=== PATIENT | male | born 1960 | race African-American/Black ===

== ENCOUNTER 2025-06-24 08:42 | Outpatient (CLI) | payer OTHER ==
[2025-06-24 09:27] LABS: #Basophils 0.04 10x3/uL (0.0-0.2); #Eosinophils 0.21 10x3/uL (0.0-0.7); #Monocytes 0.81 10x3/uL (0.11-0.59); #Neutrophils 2.33 10x3/uL (1.40-6.50); %Basophils 0.6 % (0.0-1.0); %Eosinophils 3.2 % (0.0-10.0); %Lymphocytes 48.2 % (21.0-51.0); %Monocytes 12.3 % (0.0-10.0); %Neutrophils 35.5 % (42.0-75.0); Hematocrit 44.9 % (42.0-52.0); Hemoglobin 14.8 g/dL (14.0-18.0); Mean Corpuscular Hemoglobin 27.8 pg (27.0-31.0); Mean Corpuscular Volume 84.2 fL (78.0-98.0); Platelet Count 182 10x3/uL (130-400); Red Blood Cell (RBC) Count 5.33 mill/uL (4.70-6.10); White Blood Cell (WBC) Count 6.56 10x3/uL (4.8-10.8)
[2025-06-24 09:31] LABS: INR-International Normal Ratio 1.2; Prothrombin Time 14.9 sec (12.0-14.7)
[2025-06-24 09:40] LABS: Anion Gap 14 mmol/L (10-20); BUN (Urea Nitrogen) 10 mg/dL (8.4-25.7); Calc. Creatinine Clearance 0 mL/min (70-130); Calcium 9.4 mg/dL (7.8-10.44); Carbon Dioxide 25 mmol/L (23-31); Chloride 107 mmol/L (98-107); Glucose 121 mg/dL (80-115); Potassium 4.0 mmol/L (3.5-5.1); Sodium 142 mmol/L (136-145)
== END 2025-06-24 08:43 | disposition home or self-care (01) ==
LOC: LABBT 08:42
PROVIDERS: ATTEND Orthopaedic Surgery
DX: Z01.812 Encounter for preprocedural laboratory examination (principal); M17.12 Unilateral primary osteoarthritis, left knee
CPT/HCPCS: 80048; 85025; 85610; 87081

== ENCOUNTER 2025-07-01 05:43 | Inpatient (IN) | payer OTHER ==
[2025-06-24 09:05] VITALS: BMI 39.3
[2025-07-01] MEDS ORDERED: Tranexamic Acid 1,000 MG/10 ML VIAL ONE (06:18)
[2025-07-01] MEDS ORDERED: VANCOMYCIN 2 GRAM/400 ML BAG ONE (06:18)
[2025-07-01] MEDS ORDERED: Ropivacaine 0.5% HCl/PF (150 MG/30 ML VIAL) ONE (06:45)
[2025-07-01] MEDS ORDERED: CEFAZOLIN 2 GM VIAL ONE (06:52)
[2025-07-01] MEDS ORDERED: PROPOFOL 40 ML ONE (07:14)
[2025-07-01] MEDS ORDERED: Ondansetron PF 4 MG/2 ML Vial IVP PRN ×2 (07:30→09:19)
[2025-07-01] MEDS ORDERED: Ropivacaine 0.2% 550 ML 550 ML NERVE BLCK SCH (07:30)
[2025-07-01] MEDS ORDERED: HYDROcodone/Acetaminophen 10/325 mg Tablet PO PRN (07:30)
[2025-07-01] MEDS ORDERED: PHENYLEPHRINE-NS 100 MCG/ML 10 ML SYRINGE ONE (07:38)
[2025-07-01] MEDS ORDERED: CEFAZOLIN 1 GM VIAL ONE (07:44)
[2025-07-01] MEDS ORDERED: METFORMIN HCL 500 MG PO SCH (09:19)
[2025-07-01] MEDS ORDERED: Acetaminophen 325 MG TAB PO PRN (09:19)
[2025-07-01] MEDS ORDERED: diphenhydrAMINE 25 MG CAP PO PRN (09:19)
[2025-07-01] MEDS ORDERED: fentaNYL PF 100 MCG/2 ML SYRINGE ONE ×2 (09:54→11:35)
[2025-07-01] MEDS: HYDROcodone/Acetaminophen 10/325 mg Tablet PO PRN (15:33)
[2025-07-01] MEDS: Ketorolac Tromethamine 30 MG (1 mL) VIAL IVP SCH (15:40)
[2025-07-01] MEDS: Senokot S 8.6-50 MG TAB PO SCH (15:40)
[2025-07-01] MEDS: Multivitamin W/ Minerals 1 TAB PO SCH (15:40)
[2025-07-01] MEDS: Ferrous Gluconate 324 MG TAB PO SCH (15:41)
[2025-07-01] MEDS: Metoprolol Succinate XL 25 MG ER.TAB PO SCH (19:40)
[2025-07-01] MEDS: Apixaban 5 MG TAB PO SCH (19:40)
[2025-07-01] MEDS: Cholecalciferol 1,000 UNITS (25 MCG) TAB PO SCH (19:40)
[2025-07-01] MEDS ORDERED: Non-Formulary Item 1 EACH (Cholecalciferol (Vitamin D3) [Vitamin D3] 2,000 UNIT Capsule) PO SCH (21:00)
[2025-07-01] MEDS ORDERED: Simvastatin 10 MG TAB PO SCH (21:00)
[2025-07-01] MEDS: Non-Formulary Item 1 EACH (Multivitamin [Multivitamins] 1 CAP Capsule) PO SCH (21:38)
[2025-07-02 07:10] LABS: Hematocrit 40.9 % (42.0-52.0); Hemoglobin 12.8 g/dL (14.0-18.0); Mean Corpuscular Hemoglobin 27.2 pg (27.0-31.0); Mean Corpuscular Volume 86.8 fL (78.0-98.0); Platelet Count 176 10x3/uL (130-400); Red Blood Cell (RBC) Count 4.71 mill/uL (4.70-6.10); White Blood Cell (WBC) Count 10.33 10x3/uL (4.8-10.8)
[2025-07-02] MEDS: metFORMIN XR 500 MG ER.TAB PO SCH (08:33)
[2025-07-02] MEDS ORDERED: Apixaban 5 MG TAB PO SCH (09:00)
[2025-07-02] MEDS ORDERED: HYDROmorphone 0.5 MG/0.5 ML SYRINGE SLOW IVP PRN (17:03)
[2025-07-03 07:56] LABS: Hematocrit 37.2 % (42.0-52.0); Hemoglobin 11.4 g/dL (14.0-18.0); Mean Corpuscular Hemoglobin 27.2 pg (27.0-31.0); Mean Corpuscular Volume 88.8 fL (78.0-98.0); Platelet Count 153 10x3/uL (130-400); Red Blood Cell (RBC) Count 4.19 mill/uL (4.70-6.10); White Blood Cell (WBC) Count 13.21 10x3/uL (4.8-10.8)
[2025-07-03 11:26] VITALS: BP 134/77; TEMP 98.2
== END 2025-07-03 15:32 | disposition home or self-care (01) | DRG 470 ==
LOC: SDC 05:43 → SURG B 15:01 → OBSVTOIN 07-02 14:21
PROVIDERS: ADMIT Orthopaedic Surgery; ATTEND Orthopaedic Surgery
PROC: 0SRD0JA Replacement of Left Knee Joint with Synthetic Substitute, Uncemented, Open Approach (ICD-10-PCS; principal; 2025-07-01)
DX: M17.12 Unilateral primary osteoarthritis, left knee (principal); E11.40 Type 2 diabetes mellitus with diabetic neuropathy, unspecified; I48.0 Paroxysmal atrial fibrillation; E78.5 Hyperlipidemia, unspecified; Z79.899 Other long term (current) drug therapy
CPT/HCPCS: 36415; 36416; 85027; 96374; 96375; 96376; A4306; C1713; C1776; C1889; G0378; J0169; J0665; J0690; J1885; J2250; J2704; J2795; J3010; J3375

== ENCOUNTER 2025-07-03 19:38 | Inpatient (IN) | payer OTHER ==
[2025-07-03] MEDS ORDERED: CEFAZOLIN 1 GM VIAL ONE (20:44)
[2025-07-03] MEDS ORDERED: HYDROcodone/Acetaminophen 10/325 mg Tablet ONE (20:44)
[2025-07-03 23:31] VITALS: BMI 41.1
[2025-07-03] MEDS ORDERED: Ondansetron PF 4 MG/2 ML Vial IVP PRN (23:45)
[2025-07-04] MEDS: HYDROcodone/Acetaminophen 10/325 mg Tablet PO PRN ×2 (00:10→21:40)
[2025-07-04 05:32] LABS: #Basophils Less than 0.03 10x3/uL (0.0-0.2); #Eosinophils 0.21 10x3/uL (0.0-0.7); #Monocytes 1.85 10x3/uL (0.11-0.59); #Neutrophils 7.63 10x3/uL (1.40-6.50); %Basophils 0.2 % (0.0-1.0); %Eosinophils 1.8 % (0.0-10.0); %Lymphocytes 15.4 % (21.0-51.0); %Monocytes 16.1 % (0.0-10.0); %Neutrophils 66.2 % (42.0-75.0); Hematocrit 34.0 % (42.0-52.0); Hemoglobin 10.8 g/dL (14.0-18.0); Mean Corpuscular Hemoglobin 27.8 pg (27.0-31.0); Mean Corpuscular Volume 87.6 fL (78.0-98.0); Platelet Count 156 10x3/uL (130-400); Red Blood Cell (RBC) Count 3.88 mill/uL (4.70-6.10); White Blood Cell (WBC) Count 11.52 10x3/uL (4.8-10.8)
[2025-07-04] MEDS ORDERED: CEFAZOLIN IVPB SCH ×2 (08:00→16:00)
[2025-07-04] MEDS ORDERED: SODIUM CHLORIDE 0.9% IVPB SCH ×2 (08:00→16:00)
[2025-07-04] MEDS: CEFAZOLIN IVPB SCH ×2 (10:17→18:05)
[2025-07-04] MEDS: SODIUM CHLORIDE 0.9% IVPB SCH ×2 (10:17→18:05)
[2025-07-04] MEDS ORDERED: HYDROcodone/Acetaminophen 10/325 mg Tablet PO PRN (10:24)
[2025-07-04] MEDS ORDERED: Lidocaine 1% PF 5 ML VIAL ONE (11:16)
[2025-07-04] MEDS ORDERED: PROPOFOL 20 ML ONE ×2 (11:16→12:17)
[2025-07-04] MEDS ORDERED: fentaNYL PF 100 MCG/2 ML SYRINGE ONE (11:16)
[2025-07-04] MEDS ORDERED: Ondansetron PF 4 MG/2 ML Vial ONE (11:18)
[2025-07-04] MEDS ORDERED: PHENYLEPHRINE-NS 100 MCG/ML 10 ML SYRINGE ONE (12:20)
[2025-07-04] MEDS ORDERED: HYDROmorphone 2 MG/ML VIAL ONE (12:37)
[2025-07-04] MEDS ORDERED: HYDROmorphone 0.5 MG/0.5 ML SYRINGE ONE (13:43)
[2025-07-04] MEDS: Metoprolol Succinate XL 25 MG ER.TAB PO SCH (21:39)
[2025-07-04] MEDS: Cholecalciferol 1,000 UNITS (25 MCG) TAB PO SCH (21:39)
[2025-07-04] MEDS: Senokot 8.6 MG TAB PO SCH (21:39)
[2025-07-05] MEDS: metFORMIN XR 500 MG ER.TAB PO SCH (08:47)
[2025-07-05] MEDS: Multivitamin W/ Minerals 1 TAB PO SCH (08:47)
[2025-07-05 14:14] VITALS: BP 122/74; TEMP 98.9
[2025-07-05] MEDS ORDERED: Apixaban 5 MG TAB PO SCH (21:00)
== END 2025-07-05 14:00 | disposition home or self-care (01) | DRG 908 ==
LOC: ERS 19:38 → SURG B 21:01
PROVIDERS: ADMIT Orthopaedic Surgery; ATTEND Orthopaedic Surgery
PROC: 0Y3G0ZZ Control Bleeding in Left Knee Region, Open Approach (ICD-10-PCS; principal; 2025-07-04)
PROC: 0SCD0ZZ Extirpation of Matter from Left Knee Joint, Open Approach (ICD-10-PCS; 2025-07-04)
PROC: 3E03329 Introduction of Other Anti-infective into Peripheral Vein, Percutaneous Approach (ICD-10-PCS; 2025-07-04)
PROC: 3E033XZ Introduction of Vasopressor into Peripheral Vein, Percutaneous Approach (ICD-10-PCS; 2025-07-04)
PROC: 0JQP0ZZ Repair Left Lower Leg Subcutaneous Tissue and Fascia, Open Approach (ICD-10-PCS; 2025-07-04)
DX: T81.31XA Disruption of external operation (surgical) wound, not elsewhere classified, initial encounter (principal); M96.830 Postprocedural hemorrhage of a musculoskeletal structure following a musculoskeletal system procedure; M96.840 Postprocedural hematoma of a musculoskeletal structure following a musculoskeletal system procedure; I10 Essential (primary) hypertension; E11.9 Type 2 diabetes mellitus without complications; E78.5 Hyperlipidemia, unspecified; I48.91 Unspecified atrial fibrillation; Z98.890 Other specified postprocedural states; E55.9 Vitamin D deficiency, unspecified; Z79.899 Other long term (current) drug therapy; Z96.653 Presence of artificial knee joint, bilateral; Z98.1 Arthrodesis status; Z87.891 Personal history of nicotine dependence; X50.9XXA Other and unspecified overexertion or strenuous movements or postures, initial encounter; Y83.8 Other surgical procedures as the cause of abnormal reaction of the patient, or of later complication, without mention of misadventure at the time of the procedure
CPT/HCPCS: 36415; 85025; 93005; 93010; 96365; J0169; J0665; J0690; J1100; J1171; J2405; J2704